=== PATIENT | female | born 1955 | race Caucasian/White ===

== ENCOUNTER 2017-01-24 19:36 | Emergency (ER) | payer OTHER ==
[2017-01-24 19:45] VITALS: BP 140/75
[2017-01-24] MEDS ORDERED: Albuterol HFA INHALER* 8 gm MDI INH ONE (20:25)
--- NOTE | 2017-01-24 22:19 | UC ---
Bradley Godoy Thomas, scribed for Marbella Fox DO on 01/24/17 at 2012 . Respiratory Complaint HPI - HPI Summary HPI Summary: The pt is a 61 y/o F [place] [facility] of her asthma medication. She is prescribed Ventolin HFA Inhaler, which she reports she uses daily during the summer but less during the winter. She felt that she needed it earlier today but found that she had lost it. Pt believes she left it in a hotel room. She is also prescribed a Flovent HFA 100 mcg inhaler which she takes daily. She denies SOB at [facility] [place], "probably because of decreased humitity" here in the facility. She currently denies F/C/S, wheezing drainage, CP, SOB, abd pain, ear ache, and sore throat. PMHx: asthma. PSHx: brain tumor removal. SHx: no smoking, rare alcohol use, no illicit drug use. She is visiting the area and normally lives in [facility]. - History of Current Complaint Chief Complaint: UCRespiratory Stated Complaint: ASTHMA Time Seen by Provider: 01/24/17 19:59 Hx Obtained From: Patient ?: No Onset/Duration: Sudden Onset, Resolved Timing: Intermittent Episodes Severity Initially: Moderate Severity Currently: None Pain Intensity: 0 Pain Scale Used: 0-10 Numeric Aggravating Factors: Nothing - humidity Alleviating Factors: Bronchodilator Associated Signs And Symptoms: Positive: Negative, Dyspnea - resolved. Negative : Fever, Chills, Pleuritic Chest Pain, Wheezing, Dizziness, Edema, URI, Nasal Congestion, Sinus Discomfort - Allergies/Home Medications Allergies/Adverse Reactions: Allergies Allergy/AdvReac Type Severity Reaction Status Date / Time Penicillins [PCN] Allergy Vomiting Verified 01/24/17 19:45 Home Medications: Home Medications Albuterol HFA INHALER* [Ventolin HFA Inhaler*] 1 puff INH Q4H PRN 01/24/17 [ History Confirmed 01/24/17] Fluticasone HFA 110 mcg(NF) [Flovent HFA 110 mcg(NF)] 1 puff INH BID 01/24/17 [ History Confirmed 01/24/17] Fluticasone NASAL SPRAY 50MCG* [Flonase NASAL SPRAY 50MCG*] 2 spray BOTH NARES DAILY 01/24/17 [History Confirmed 01/24/17] PMH/Surg Hx/FS Hx/Imm Hx Previously Healthy: No Endocrine History: Other Other Endocrine History: Allergies to animals Respiratory History: Asthma - Surgical History Surgical History: Yes Surgery Procedure, Year, and Place: brain tumor removal - Family History Known Family History: Negative: Cardiac Disease, Hypertension, Diabetes - Social History Occupation: Employed Full-time Alcohol Use: Rare Substance Use Type: None Smoking Status (MU): Never Smoked Tobacco Review of Systems Constitutional: Negative Skin: Negative Eyes: Negative ENT: Negative Respiratory: Other - POS: in need of a medication refill for her asthma; NEG: discomfort related to air quality Cardiovascular: Negative Gastrointestinal: Negative Genitourinary: Negative Motor: Negative Neurovascular: Negative Musculoskeletal: Negative Neurological: Negative Psychological: Negative All Other Systems Reviewed And Are Negative: Yes Physical Exam Triage Information Reviewed: Yes Appearance: Well-Appearing, No Pain Distress, Well-Nourished Vital Signs: Initial Vital Signs Temp 98.3 F 01/24/17 19:40 Pulse 80 01/24/17 19:40 Resp 18 01/24/17 19:40 BP 140/75 01/24/17 19:40 Pulse Ox 99 01/24/17 19:40 Vital Signs Reviewed: Yes Eyes: Positive: Conjunctiva Clear. Negative: Discharge ENT: Positive: Hearing grossly normal. Negative: Muffled/hoarse voice Neck exam: Normal Neck: Positive: Supple Respiratory: Positive: Lungs clear, Normal breath sounds, No respiratory distress, No accessory muscle use Cardiovascular: Positive: RRR, No Murmur Abdomen Description: Positive: Nontender, Soft. Negative: Distended, Guarding Musculoskeletal Exam: Normal Neurological: Positive: Alert, Muscle Tone Normal Psychological Exam: Normal Psychological: Positive: Age Appropriate Behavior Skin Exam: Normal Skin: Positive: Other - Warm, dry, normal color Diagnostic Evaluation - Laboratory O2 Sat by Pulse Oximetry: 99 Respiratory Course/Dx - Course Course Of Treatment: ASSESSMENT AND PLAN: The pt is a 61 y/o F [place] [facility] [place] a [place]ill of her asthma medication. She is prescribed Ventolin HFA Inhaler, which she reports she uses daily during the summer but less during the winter. She is prescribed a Flovent HFA 100 mcg inhaler which she takes daily. She denies SOB at [facility] [place] [facility] [place] [place] her only complaint is some discomfort related to the air quality. She denies F/C/S, wheezing, drainage, CP, SOB, abd pain, ear ache, and sore throat. PMHx: asthma. PSHx: brain tumor removal. SHx: no smoking, rare alcohol use, no illicit drug use. She is visiting the area and normally lives in [facility]. High blood pressure noted. Patient is diagnosed with asthma. Patient will be discharged home with follow up by PCP. She was given an inhaler at [facility] [place]. At her request, she was also given a prescription that she can fill in the morning. Patient is agreeable to this plan. - Differential Dx/Diagnosis Differential Diagnosis/HQI/PQRI: Asthma, Other - allergies Provider Diagnoses: asthma Discharge - Discharge Plan Condition: Stable Disposition: HOME Prescriptions: Albuterol HFA INHALER* [Ventolin HFA Inhaler*] 2 puff INH Q4H PRN #1 mdi PRN Reason: Sob/Wheezing Patient Education Materials: Asthma (ED) Referrals: No Primary Care Phys,NOPCP [Medical Doctor] - Additional Instructions: We are happy to give you are refill on your Ventolin inhaler. Please enjoy the rest of your trip. Your blood pressure was elevated at this visit. That does not mean you have hypertension, it is probably due to your current condition. Please follow up with your primary care provider. The documentation as recorded by the Bradley christiansen Thomas accurately reflects the service I personally performed and the decisions made by , Marbella Fox DO.
== END 2017-01-24 20:37 | disposition home or self-care (01) ==
LOC: UCEAST 19:36
DX: J45.909 Unspecified asthma, uncomplicated (principal); Z88.0 Allergy status to penicillin
CPT/HCPCS: 99202; A9270-GY; G0463